=== PATIENT | male | born 1985 | race Caucasian/White ===

== ENCOUNTER 2017-05-08 15:49 | Emergency (ER) | payer SELFPAY ==
[~2017-05-08 15:49] MED LIST: Acetaminophen/HYDROcodone 325-5 MG Tab PO ONE
[2017-05-08 15:58] VITALS: BP 133/78
[2017-05-08] MEDS ORDERED: Acetaminophen/HYDROcodone 325-5 MG Tab PO ONE (17:05)
--- NOTE | 2017-05-08 17:40 | EDM.PDOC ---
ED HPI GENERAL MEDICAL PROBLEM - General Chief Complaint: Upper Extremity Injury/Pain Stated Complaint: Smashed R)hand with sledge hammer Time Seen by Provider: 05/08/17 16:25 - History of Present Illness INITIAL COMMENTS - FREE TEXT/NARRATIVE: Right had swelling after being hit with a sledge hammer at work. Onset: Sudden Duration: Day(s): Location: Reports: Upper Extremity, Right Quality: Reports: Throbbing Severity: Moderate Left Hand Pain Score (Numeric/FACES): 7 - Related Data Allergies Allergy/AdvReac Type Severity Reaction Status Date / Time No Known Allergies Allergy Verified 05/08/17 16:05 Home Meds: Home Meds . [No Known Home Meds] 08/02/16 [History] Past Medical History - Past Health History Medical/Surgical History: Denies Medical/Surgical History - Past Surgical History HEENT Surgical History: Reports: Naso-Sinus Surgery, Polypectomy Musculoskeletal Surgical History: Reports: Other (See Below) Other Musculoskeletal Surgeries/Procedures:: surgery on Right hand and right knee Social & Family History - Family History Family Medical History: Noncontributory - Tobacco Use Smoking Status *Q: Current Every Day Smoker Years of Tobacco use: 15 Packs/Tins Daily: 1 - Caffeine Use Caffeine Use: Reports: Coffee - Recreational Drug Use Recreational Drug Use: No Review of Systems - Review of Systems Review Of Systems: ROS reveals no pertinent complaints other than HPI. ED EXAM, GENERAL - Physical Exam Exam: See Below Free Text/Narrative:: Obvious right hand swelling noted with some abrasions around 5th nuckle. Ears: Normal External Exam Nose: Normal Inspection Throat/Mouth: Normal Inspection Head: Atraumatic Neck: Normal Inspection Respiratory/Chest: No Respiratory Distress Cardiovascular: Normal Peripheral Pulses GI/Abdominal: Normal Bowel Sounds (Male) Exam: No Hernia Rectal (Males) Exam: Normal Exam Back Exam: Normal Inspection Extremities: Normal Inspection Neurological: Alert, Oriented Psychiatric: Normal Affect Skin Exam: Warm Course - Vital Signs Last Recorded V/S: Last Vital Signs Temp 98.6 F 05/08/17 15:55 Pulse 76 05/08/17 15:55 Resp 20 05/08/17 15:55 BP 133/78 05/08/17 15:55 Pulse Ox 96 05/08/17 15:55 - Orders/Labs/Meds Orders: Active Orders 24 hr Category Date Time Status Hand 2V Rt [CR] Stat Exams 05/08/17 16:02 Taken Meds: Medications Discontinued Medications Generic Name Dose Route Start Last Admin Trade Name Patrick PRN Reason Stop Dose Admin Hydrocodone Bitart/Acetaminophen 2 tab 05/08/17 17:05 05/08/17 17:09 [place] 325-5 Mg PO 05/08/17 17:06 2 tab ONETIME ONE Administration Departure - Departure Time of Disposition: 17:38 Disposition: Home, Self-Care 01 Condition: Good Clinical Impression: Hand contusion - Discharge Information Forms: ED Department Discharge Additional Instructions: Elevate hand often. Use kelli bandage for comfort. Take pain medications as prescribed. - My Orders Last 24 Hours: My Active Orders 05/08/17 16:02 Hand 2V Rt [CR] Stat - Assessment/Plan Last 24 Hours: My Active Orders 05/08/17 16:02 Hand 2V Rt [CR] Stat
[2017-05-08] MEDS ORDERED: Take Home: Acetaminophen/HYDROcodone 325-5 MG, 2 Tab Pack PO ONE (17:41)
== END 2017-05-08 18:00 | disposition home or self-care (01) ==
LOC: CC.ED 15:49
DX: S60.221A Contusion of right hand, initial encounter (principal); F17.210 Nicotine dependence, cigarettes, uncomplicated; W27.8XXA Contact with other nonpowered hand tool, initial encounter; Y92.69 Other specified industrial and construction area as the place of occurrence of the external cause; Y99.0 Civilian activity done for income or pay
CPT/HCPCS: 73120; 99283; A9270